=== PATIENT | male | born 1970 | race Caucasian/White ===

== ENCOUNTER 2018-09-20 23:18 | Inpatient (IN) | payer MEDICAID, OTHER ==
[~2018-09-20] VITALS: Ht 185.4 cm; Wt 140.3 kg
[2018-09-20] MEDS ORDERED: methylPREDNISolone SOD SUCC 125 MG/2 ML IVPush STA (23:26)
[2018-09-20] MEDS ORDERED: ALBUTEROL/IPRATROPIUM 2.5MG/0.5MG, 3 ML NPPB SCH (23:30)
[2018-09-20] MEDS ORDERED: PLEASE ENTER ALLERGIES MC SCH (23:30)
[2018-09-20] MEDS ORDERED: ALBU8.5H8 INH (23:33)
[2018-09-20] MEDS ORDERED: methylPREDNISolone SOD SUCC 125 MG/2 ML ONE (23:38)
[2018-09-20 23:58] LABS: BASOPHILS # (AUTO) 0.06 x10^3/uL (0-0.1); BASOPHILS % (AUTO) 1 % (0-1); EOSINOPHILS # (AUTO) 0.31 x10^3/uL (0-0.4); EOSINOPHILS % (AUTO) 3 % (1-7); LYMPHOCYTES # (AUTO) 0.86 x10^3/uL (1-3.4); LYMPHOCYTES % (AUTO) 9 % (22-44); MD NO; MEAN CORPUSCULAR HEMOGLOBIN 30.2 pg (27.5-34.5); MEAN CORPUSCULAR HGB CONC 32.7 g/dL (33.2-36.2); MEAN CORPUSCULAR VOLUME 92.3 fL (81-97); MEAN PLATELET VOLUME 8.1 fL (7.4-10.4); MONOCYTES # (AUTO) 0.82 x10^3/uL (0.2-0.8); MONOCYTES % (AUTO) 8 % (2-9); NEUTROPHILS % (AUTO) 80 % (42-75); PLATELET COUNT 195 x10^3/uL (130-400); RED BLOOD COUNT 4.55 x10^6/uL (4.38-5.82); RED CELL DISTRIBUTION WIDTH 13.2 % (9.4-14.8)
--- NOTE | 2018-09-20 23:58 | NUR ---
PT BIB AMBULANCE FROM [facility]. PT HAS COUGH, SORE THROAT, CHEST PAIN AND HEMATURIA FOR SEVERAL DAYS. 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 PT AFEBRILE ON ARRIVAL AND COUGHING FREQUENTLY. PT GIVEN SOLUMEDROL. RT AT BEDSIDE. CALL LIGHT IN REACH.
[2018-09-21] MEDS ORDERED: GUAIFENESIN/COD200MG-20MG/10ML LIQUID PO STA (00:03)
[2018-09-21 00:08] LABS: ALANINE AMINOTRANSFERASE 33 U/L (12-78); ALBUMIN 3.2 g/dL (3.4-5.0); ANION GAP 8 mmol/L (5-15); CALCIUM 8.3 mg/dL (8.5-10.1); CHLORIDE 106 mmol/L (98-107); CREATININE 1.05 mg/dL (0.7-1.3)
[2018-09-21 00:12] LABS: ALKALINE PHOSPHATASE 95 U/L (45-117); BILIRUBIN,TOTAL 0.2 mg/dL (0.2-1.0); TOTAL PROTEIN 6.8 g/dL (6.4-8.2); TROPONIN I < 0.015 ng/mL (0.000-0.045)
[2018-09-21] MEDS ORDERED: AZITHROMYCIN 500 MG in SODIUM CHLORIDE 0.9% 250 ML IV ONE (00:30)
--- NOTE | 2018-09-21 00:54 | NUR ---
REPORT TO FLOOR RN. AWAITING BED TO BE CLEANED.
--- NOTE | 2018-09-21 00:59 | NUR ---
LUNCH RN: PT MEDICATED PER EMAR. 5 RIGHTS ADDRESSED.
[2018-09-21] MEDS ORDERED: ONDANSETRON ODT 4 MG PO PRN (01:30)
[2018-09-21] MEDS ORDERED: ONDANSETRON 2MG/ML, 2ML IVPush PRN (01:30)
[2018-09-21] MEDS ORDERED: hydrALAzine 20 MG/ML, 1ML IVPush PRN (01:30)
[2018-09-21] MEDS ORDERED: POLYETHYLENE GLYCOL 17 GM PACKET PO PRN (01:30)
[2018-09-21] MEDS ORDERED: DOCUSATE 100 MG CAPSULE PO PRN (01:30)
[2018-09-21] MEDS ORDERED: PROMETHAZINE 25 MG/ML, 1ML IM PRN (01:30)
[2018-09-21] MEDS ORDERED: morphine SULFATE 10 MG/ML, 1ML IVPush PRN (01:30)
[2018-09-21] MEDS ORDERED: BISACODYL 10 MG SUPP PR PRN (01:30)
[2018-09-21 01:35] VITALS: BP 117/69
[2018-09-21] MEDS: HEPARIN 5,000 UNITS/ML, 1ML SQ SCH ×3 (01:53→17:12)
[2018-09-21] MEDS: SODIUM CHLORIDE 0.9% 1,000 ML IV SCH ×2 (01:53→11:50)
[2018-09-21] MEDS: NICOTINE 14MG/24 HR PATCH.TD24 TD SCH (01:54)
[2018-09-21] MEDS: OXYcodone IR 5MG TABLET PO PRN ×2 (01:54→20:18)
[2018-09-21 02:04] LABS: HEMOGLOBIN A1C 5.8 % (4.2-6.3)
[2018-09-21 02:05] LABS: FREE T4 (FREE THYROXINE) 0.84 ng/dL (0.76-1.46); THYROID STIMULATING HORMONE 1.4 mIU/L (0.358-3.740)
[2018-09-21 03:00] VITALS: BP 117/65
[2018-09-21 03:14] VITALS: BP 117/65
[2018-09-21 03:29] LABS: MICROSCOPIC AUTO
[2018-09-21 03:32] LABS: CULTURE INDICATED? YES
[2018-09-21] MEDS: methylPREDNISolone SOD SUCC 125 MG/2 ML IVPush SCH ×4 (06:00→23:12)
[2018-09-21 06:59] VITALS: BP 133/74
[2018-09-21] MEDS: ALBUTEROL/IPRATROPIUM 2.5MG/0.5MG, 3 ML NPPB SCH ×4 (09:06→21:14)
[2018-09-21] MEDS: BENZONATATE 100 MG CAPSULE PO PRN ×3 (09:46→23:59)
[2018-09-21] MEDS ORDERED: LIDODERM 5% PATCH TD ONE (12:00)
[2018-09-21 13:35] VITALS: BP 120/73
[2018-09-21 20:01] VITALS: BP 110/61
[2018-09-22] MEDS ORDERED: LIDODERM REMOVE PATCH NOTE XX SCH
[2018-09-22] MEDS: AZITHROMYCIN 500 MG in SODIUM CHLORIDE 0.9% 250 ML IV SCH (00:30)
[2018-09-22 01:00] VITALS: BP 101/59
[2018-09-22] MEDS: NICOTINE 14MG/24 HR PATCH.TD24 TD SCH (01:27)
[2018-09-22] MEDS: HEPARIN 5,000 UNITS/ML, 1ML SQ SCH ×3 (01:27→18:19)
[2018-09-22] MEDS: methylPREDNISolone SOD SUCC 125 MG/2 ML IVPush SCH ×3 (05:04→20:09)
[2018-09-22 05:51] LABS: MEAN CORPUSCULAR HEMOGLOBIN 29.9 pg (27.5-34.5); MEAN CORPUSCULAR HGB CONC 32.7 g/dL (33.2-36.2); MEAN CORPUSCULAR VOLUME 91.4 fL (81-97); MEAN PLATELET VOLUME 7.9 fL (7.4-10.4); PLATELET COUNT 212 x10^3/uL (130-400); RED BLOOD COUNT 4.64 x10^6/uL (4.38-5.82); RED CELL DISTRIBUTION WIDTH 13.1 % (9.4-14.8)
[2018-09-22 05:55] LABS: CHLORIDE 107 mmol/L (98-107)
[2018-09-22 06:02] LABS: ALANINE AMINOTRANSFERASE 30 U/L (12-78); ALBUMIN 3.1 g/dL (3.4-5.0); ALKALINE PHOSPHATASE 102 U/L (45-117); ANION GAP 6 mmol/L (5-15); BILIRUBIN,TOTAL 0.5 mg/dL (0.2-1.0); CALCIUM 8.5 mg/dL (8.5-10.1); CHOL/HDL RATIO 2.4; CHOLESTEROL, TOTAL 134 mg/dL (140-239); CREATININE 0.92 mg/dL (0.7-1.3); HDL CHOL % 43 % (26-37); HDL CHOLESTEROL (DIRECT) 57 mg/dL (40-60); LDL CHOLESTEROL,CALCULATED 63 mg/dL (54-169); LDL/HDL RATIO 1.1 (0.5-3.0); TOTAL PROTEIN 7.1 g/dL (6.4-8.2); TRIGLYCERIDES 71 mg/dL (50-200); VLDL CHOLESTEROL 14 mg/dL (0-25)
[2018-09-22 06:18] LABS: MD YES
[2018-09-22 06:19] LABS: <PLATELET ESTIMATE> ADEQUATE; <PLT MORPHOLOGY> NORMAL PLT MORPH; <RBC MORPHOLOGY> NORMAL; BAND#(MANUAL) 1.74 x10^3/uL; BANDS%(MANUAL) 10 % (0-7); LYMPH#(MANUAL) 0.17 x10^3/uL (1-3.4); LYMPHS% (MANUAL) 1 % (22-44); MONOS#(MANUAL) 0.35 x10^3/uL (0.3-2.7); MONOS% (MANUAL) 2 % (2-9); SEG#(MANUAL) 15.14 x10^3/uL (1.8-6.8); SEGS% (MANUAL) 87 % (42-75)
[2018-09-22] MEDS: ALBUTEROL/IPRATROPIUM 2.5MG/0.5MG, 3 ML NPPB SCH ×4 (07:20→21:25)
[2018-09-22 08:08] VITALS: BP 130/81
[2018-09-22] MEDS: BENZONATATE 100 MG CAPSULE PO PRN ×2 (09:09→22:41)
[2018-09-22] MEDS: OXYcodone IR 5MG TABLET PO PRN (09:12)
[2018-09-22] MEDS: AMPICILLIN/SULBACTAM 1,500 MG in SODIUM CHLORIDE 0.9% 50 ML IV SCH ×3 (10:45→22:41)
[2018-09-22] MEDS: LIDODERM 5% PATCH TD SCH (10:45)
[2018-09-22] MEDS: ACETAMINOPHEN 325 MG TABLET PO PRN ×2 (13:31→20:14)
[2018-09-22 13:45] VITALS: BP 113/61
[2018-09-22 18:53] VITALS: BP 87/59
[2018-09-22 19:03] VITALS: BP 144/67
[2018-09-22] MEDS: GUAIFENESIN/DM 200-20MG, 10ML UDC PO PRN (20:09)
[2018-09-22] MEDS: LIDODERM REMOVE PATCH NOTE XX SCH (22:42)
[2018-09-23] MEDS: AZITHROMYCIN 500 MG in SODIUM CHLORIDE 0.9% 250 ML IV SCH ×2 (00:19→23:54)
[2018-09-23] MEDS: HEPARIN 5,000 UNITS/ML, 1ML SQ SCH ×3 (01:13→17:27)
[2018-09-23] MEDS: NICOTINE 14MG/24 HR PATCH.TD24 TD SCH (01:15)
[2018-09-23 02:17] VITALS: BP 159/84
[2018-09-23] MEDS: GUAIFENESIN/DM 200-20MG, 10ML UDC PO PRN ×3 (03:10→17:27)
[2018-09-23] MEDS: BENZONATATE 100 MG CAPSULE PO PRN ×2 (03:24→22:33)
[2018-09-23] MEDS: AMPICILLIN/SULBACTAM 1,500 MG in SODIUM CHLORIDE 0.9% 50 ML IV SCH ×4 (04:26→22:33)
[2018-09-23] MEDS: methylPREDNISolone SOD SUCC 125 MG/2 ML IVPush SCH ×2 (04:26→13:12)
[2018-09-23] MEDS ORDERED: ALBUTEROL/IPRATROPIUM 2.5MG/0.5MG, 3 ML NPPB PRN (05:30)
[2018-09-23 05:47] LABS: MEAN CORPUSCULAR HEMOGLOBIN 30.5 pg (27.5-34.5); MEAN CORPUSCULAR HGB CONC 32.6 g/dL (33.2-36.2); MEAN CORPUSCULAR VOLUME 93.6 fL (81-97); PLATELET COUNT 261 x10^3/uL (130-400); RED CELL DISTRIBUTION WIDTH 13.3 % (9.4-14.8)
[2018-09-23 05:58] LABS: CHLORIDE 109 mmol/L (98-107)
[2018-09-23 06:02] LABS: ANION GAP 7 mmol/L (5-15); CALCIUM 8.5 mg/dL (8.5-10.1); CREATININE 0.94 mg/dL (0.7-1.3)
[2018-09-23 06:15] LABS: MD YES
[2018-09-23 06:17] LABS: <PLATELET ESTIMATE> ADEQUATE; <RBC MORPHOLOGY> NORMAL; BANDS%(MANUAL) 3 % (0-7); LYMPH#(MANUAL) 1.01 x10^3/uL (1-3.4); LYMPHS% (MANUAL) 5 % (22-44); MONOS% (MANUAL) 4 % (2-9); SEG#(MANUAL) 17.69 x10^3/uL (1.8-6.8); SEGS% (MANUAL) 88 % (42-75)
[2018-09-23 06:18] LABS: <PLT MORPHOLOGY> NORMAL PLT MORPH
[2018-09-23 06:40] VITALS: BP 130/79
[2018-09-23] MEDS: ALBUTEROL/IPRATROPIUM 2.5MG/0.5MG, 3 ML NPPB SCH ×4 (06:56→20:00)
[2018-09-23] MEDS: LIDODERM 5% PATCH TD SCH (10:09)
[2018-09-23 12:38] VITALS: BP 148/74
[2018-09-23] MEDS ORDERED: methylPREDNISolone 4mg DOSE PACK PO ONE (19:30)
[2018-09-23 20:01] VITALS: BP 151/79
[2018-09-23] MEDS: ACETAMINOPHEN 325 MG TABLET PO PRN (20:46)
[2018-09-23] MEDS: LIDODERM REMOVE PATCH NOTE XX SCH (22:33)
[2018-09-24] MEDS: NICOTINE 14MG/24 HR PATCH.TD24 TD SCH (00:37)
[2018-09-24] MEDS: GUAIFENESIN/DM 200-20MG, 10ML UDC PO PRN ×2 (00:38→08:37)
[2018-09-24] MEDS: HEPARIN 5,000 UNITS/ML, 1ML SQ SCH ×2 (00:38→08:28)
[2018-09-24 02:51] VITALS: BP 132/70
[2018-09-24] MEDS: AMPICILLIN/SULBACTAM 1,500 MG in SODIUM CHLORIDE 0.9% 50 ML IV SCH ×2 (05:03→10:30)
[2018-09-24] MEDS: ALBUTEROL/IPRATROPIUM 2.5MG/0.5MG, 3 ML NPPB SCH (07:00)
[2018-09-24 07:42] VITALS: BP 121/76
[2018-09-24] MEDS ORDERED: FLUT1DIS3 INH (08:35)
[2018-09-24] MEDS ORDERED: AMOX1TAB64 PO (08:35)
[2018-09-24] MEDS ORDERED: PRED20TA PO (08:35)
[2018-09-24] MEDS: BENZONATATE 100 MG CAPSULE PO PRN (08:38)
[2018-09-24] MEDS: LIDODERM 5% PATCH TD SCH (10:30)
== END 2018-09-24 15:10 | disposition home or self-care (01) | DRG 871 ==
LOC: ED 23:59 → EDIP 09-21 01:14 → 4WST 09-21 01:32 → DCLOUNGE 09-24 14:55
PROVIDERS: ADMIT Internal Medicine; ATTEND Internal Medicine
DX: A41.9 Sepsis, unspecified organism (principal); J96.01 Acute respiratory failure with hypoxia; J15.6 Pneumonia due to other Gram-negative bacteria; J44.1 Chronic obstructive pulmonary disease with (acute) exacerbation; J44.0 Chronic obstructive pulmonary disease with (acute) lower respiratory infection; J45.901 Unspecified asthma with (acute) exacerbation; E44.0 Moderate protein-calorie malnutrition; Z68.41 Body mass index [BMI] 40.0-44.9, adult; G47.33 Obstructive sleep apnea (adult) (pediatric); D72.828 Other elevated white blood cell count; R31.9 Hematuria, unspecified; F17.210 Nicotine dependence, cigarettes, uncomplicated; J20.9 Acute bronchitis, unspecified; Z99.81 Dependence on supplemental oxygen; Z80.0 Family history of malignant neoplasm of digestive organs; Z82.5 Family history of asthma and other chronic lower respiratory diseases; Z83.3 Family history of diabetes mellitus; Z87.440 Personal history of urinary (tract) infections
CPT/HCPCS: 36415; 84145; 99285; J7620; 71045; 80048; 80053; 80061; 81001; 83036; 83605; 83735; 83880; 84439; 84443; 84484; 85025; 87040; 87070; 87081; 87086; 87147; 87205; 87880; 93005; 93306; 94640; 96374; G0378; J0456; J1644; J7509; J0295; J2930; J7030; J7050; J7512